=== PATIENT | male | born 2000 | race Asian ===

== ENCOUNTER 2023-09-14 16:02 | Emergency (ER) | payer OTHER ==
[~2023-09-14] VITALS: Ht 170.2 cm; Wt 59.0 kg
[2023-09-14 16:05] VITALS: BP_SYST 114; PULSE 89; RESP 20; TEMP 99.1; O2SAT 99
[2023-09-14] MEDS: methylPREDNISolone SOD SUCC/PF 62.5 MG/ML VIAL IVP ONE (16:26)
[2023-09-14] MEDS: DIPHENHYDRAMINE INJ 50 MG/ML VIAL IVP ONE (16:26)
[2023-09-14] MEDS ORDERED: DIPH25CA83 PO (17:34)
[2023-09-14] MEDS ORDERED: METH-776 PO (17:34)
[2023-09-14 18:55] VITALS: BP_SYST 126; PULSE 91; RESP 20; TEMP 98.7; O2SAT 99
== END 2023-09-14 18:00 | disposition home or self-care (01) ==
LOC: SED 16:02
DX: T78.49XA Other allergy, initial encounter (principal); X58.XXXA Exposure to other specified factors, initial encounter; Z91.013 Allergy to seafood
CPT/HCPCS: 99284; 96374; 96375; J1200; J2930